=== PATIENT | male | born 2000 | race Caucasian/White ===

== ENCOUNTER 2021-08-24 18:42 | Emergency (ER) | payer OTHER ==
[~2021-08-24] VITALS: Ht 185.4 cm; Wt 88.5 kg
[2021-08-24 18:54] VITALS: BP 138/101
--- NOTE | 2021-08-24 19:00 | NUR ---
PT AMBULATED TO BED, STEADY GAIT
[2021-08-24] MEDS ORDERED: LIDOCAINE/EPI 1% 1:100000 20 ML VIAL INJ ONE (19:30)
[2021-08-24] MEDS ORDERED: NEOMYCIN/POLYMYXIN/BACITRACIN 0.9 GM/1 PKT TP ONE (19:30)
--- NOTE | 2021-08-24 19:48 | NUR ---
BECKI RAYMUNDO AT BEDSIDE
[2021-08-24] MEDS ORDERED: LIDOCAINE MPF 1% 10 MG/ML VIAL INJ ONE (19:50)
[2021-08-24 20:25] VITALS: BP 133/66
--- NOTE | 2021-08-24 20:25 | NUR ---
Patient discharged with v/s stable. Written and verbal after care instructions given and explained. Patient verbalized understanding. Ambulatory with steady gait. Pt accomapnied by friend. All questions addressed prior to discharge. Advised to follow up in 2 days for wound check; staple removal in 10 days. Work excuse note also provided. No further questions.
== END 2021-08-24 20:25 | disposition home or self-care (01) ==
LOC: MED 18:42
DX: S01.01XA Laceration without foreign body of scalp, initial encounter (principal); R03.0 Elevated blood-pressure reading, without diagnosis of hypertension; W51.XXXA Accidental striking against or bumped into by another person, initial encounter; Y93.63 Activity, rugby; Y92.328 Other athletic field as the place of occurrence of the external cause; Y99.8 Other external cause status
CPT/HCPCS: 12002; 99282; J2001